=== PATIENT | female | born 1960 | race American Indian/Alaskan Native ===

== ENCOUNTER 2016-10-02 12:00 | Outpatient (CLI) | payer MEDICARE ==
--- NOTE | 2016-10-04 11:58 | PET Report ---
PET/CT:10/02/16 12:00:00 CLINICAL: Breast cancer staging. RADIOPHARMACEUTICAL: 14.1mCi F18-FDG. COMPARISON: CT chest, abdomen and pelvis 12/01/13 TECHNIQUE- Following intravenous injection of F-18 FDG and an approximately 60 minute uptake period, CT and PET images from the mid skull to the upper thighs were acquired with the patient in the fasted state. No contrast was administered. The CT protocol used for this PET CT study is designed for attenuation correction and anatomic localization of PET abnormalities. This door liner CT is not desired to produce and cannot replace, kxftm-[id number]-art diagnostic CT scans with specific imaging protocols for different body parts and indications. Plasma glucose at the time of this test: 116g/dl. The standardized uptake values (SUV) are normalized to patient body weight and indicate the highest activity concentration (SUV max) in a given disease site. FINDINGS: Brain--Physiologic FDG uptake in the visualized regions of the brain. Neck--Physiologic FDG uptake . Chest--Physiologic FDG uptake in mediastinal blood pool and myocardium. Lungs--No abnormal uptake. No pulmonary nodule or mass. Pleura/pericardium--No abnormal uptake. Thoracic nodes--No abnormal uptake. Hepatobiliary--No abnormal uptake. Liver background SUV mean, as a reference for comparing FDG studies, is 4.0 . No liver mass. Spleen--No abnormal uptake. Pancreas--No abnormal uptake. Adrenal Glands--No abnormal uptake. Kidneys/Ureters/Bladder--No abnormal uptake. Abdominopelvic Nodes--No abnormal uptake. Bowel/Peritoneum/Mesentery--No abnormal uptake. Pelvic organs--No abnormal uptake. Bones/Soft Tissues--No abnormal uptake. However, hypodense mass of the right shoulder involving the anterior deltoid. This may be a large joint effusion. Other findings: Status post right mastectomy. IMPRESSION- Negative study for disease recurrence or metastasis.Possible mass or joint effusion of the right shoulder.
== END 2016-10-02 12:01 | disposition home or self-care (01) ==
LOC: PET 12:00
PROVIDERS: ATTEND Internal Medicine Hematology & Oncology
DX: C50.111 Malignant neoplasm of central portion of right female breast (principal); Z90.11 Acquired absence of right breast and nipple
CPT/HCPCS: 78815; 82962; A9552

== ENCOUNTER 2017-01-27 14:46 | Outpatient (CLI) | payer MEDICARE ==
--- NOTE | 2017-01-27 15:52 | XRay Report ---
RIGHT SHOULDER, 3 VIEWS History: Swelling, pain Findings: Anterior, inferior dislocation of the right glenohumeral joint is identified. There appears to be chronic irregularity of the glenoid. There are moderate degenerative changes at the right shoulder as well. A large joint effusion is also suspected. Impression: Dislocation of the right shoulder. This may be chronic, correlate with the patient's history. Joint effusion.
== END 2017-01-27 14:47 | disposition home or self-care (01) ==
LOC: SPVIMAG 14:46
PROVIDERS: ATTEND Internal Medicine
DX: M19.011 Primary osteoarthritis, right shoulder (principal); M25.411 Effusion, right shoulder; S43.004A Unspecified dislocation of right shoulder joint, initial encounter; X58.XXXA Exposure to other specified factors, initial encounter; Y93.89 Activity, other specified; Y92.89 Other specified places as the place of occurrence of the external cause; Y99.8 Other external cause status

== ENCOUNTER 2018-11-04 09:38 | Outpatient (CLI) | payer MEDICARE ==
--- NOTE | 2018-11-05 14:00 | PET Report ---
PET/CT:11/04/18 09:38:00 CLINICAL: Breast cancer restaging. RADIOPHARMACEUTICAL: 13.566mCi F18-FDG. COMPARISON: 10/02/16 PET/CT TECHNIQUE- Following intravenous injection of F-18 FDG and an approximately 60 minute uptake period, CT and PET images from the mid skull to the upper thighs were acquired with the patient in the fasted state. No contrast was administered. The CT protocol used for this PET CT study is designed for attenuation correction and anatomic localization of PET abnormalities. This char filter operator helper CT is not desired to produce and cannot replace, goblt-fa-[id number]-art diagnostic CT scans with specific imaging protocols for different body parts and indications. Plasma glucose at the time of this test: 101g/dl. The standardized uptake values (SUV) are normalized to patient body weight and indicate the highest activity concentration (SUV max) in a given disease site. FINDINGS: Brain--Physiologic FDG uptake in the visualized regions of the brain. Neck--Physiologic FDG uptake mucosal structures. No mass or lymphadenopathy. Chest--Physiologic FDG uptake in mediastinal blood pool and myocardium. Lungs--No abnormal uptake. No pulmonary nodule or mass. Pleura/pericardium--No abnormal uptake. Thoracic nodes--No abnormal uptake. Hepatobiliary--No abnormal uptake. Liver background SUV mean, as a reference for comparing FDG studies, is 3.9 compared to 4.2 on the last exam. No liver mass. Spleen--No abnormal uptake. Pancreas--No abnormal uptake. Adrenal Glands--No abnormal uptake. Focal FDG uptake Kidneys/Ureters/Bladder--No abnormal uptake. Abdominopelvic Nodes--No abnormal uptake. Bowel/Peritoneum/Mesentery--No abnormal uptake. Pelvic organs--No abnormal uptake. Bones/Soft Tissues--No suspicious uptake. Severe scoliosis. Benign FDG uptake in a right L3-4 lateral osteophyte with SUV 6.1. No underlying bone lesion is identified. Arthritis of the right shoulder and a large right shoulder joint effusion. Other findings: Status post right mastectomy. IMPRESSION- Negative study with no evidence of disease recurrence or metastasis.
== END 2018-11-04 09:39 | disposition home or self-care (01) ==
LOC: PET 09:38
PROVIDERS: ATTEND Internal Medicine Hematology & Oncology
DX: C50.111 Malignant neoplasm of central portion of right female breast (principal); M41.9 Scoliosis, unspecified; M19.011 Primary osteoarthritis, right shoulder; M25.411 Effusion, right shoulder; Z90.12 Acquired absence of left breast and nipple
CPT/HCPCS: 78815; 82962; A9552